=== PATIENT | male | born 1995 | race Caucasian/White ===

== ENCOUNTER 2017-07-14 15:35 | Emergency (ER) | payer BC, OTHER ==
[2017-07-14 15:41] VITALS: RESP 16
--- NOTE | 2017-07-14 16:07 | EDPHY ---
H & P Stated Complaint: R FLANK PAIN AND VISIBLE HEMATURIA Time Seen by Provider: 07/14/17 16:04 HPI/ROS: HPI: This is a 21-year-old male who presents with Chief Complaint: Right flank pain Location: Right flank Quality: Sharp pain Duration: Starting today at 1 o'clock Signs and Symptoms:+ hematuria, no nausea, no vomiting, no burning with urination, no testicular pain, no radiation of pain into groin, no diarrhea, no penile discharge, no fever Timing: Sudden Severity: Moderate to severe Context: Patient reports that he noticed some clots of blood in his urine over the last 2-3 days but denies any burning with urination or hesitancy. And then today around 1 o'clock, approximately 3 hours ago he had sudden onset of right flank pain, nonradiating in nature, that he describes as sharp and severe. Denies any nausea and vomiting. Went to urgent care and sent to the ER for further evaluation. No prior history of kidney stones. No history of abdominal surgery. Eating and drinking normally. Denies any trauma or regular NSAID use. Modifying Factors: No [id number] medications tried Comment: ROS: Constitutional: No fever, no chills, no weight loss Eyes: No blurred vision Respiratory: No shortness of breath, no cough Cardiovascular: No chest pain Gastrointestinal: No nausea, no vomiting no diarrhea Genitourinary: No dysuria Extremities: No myalgias Neurologic: No weakness, no numbness Skin: No rashes Hematologic: No bruising, no bleeding MEDICAL/SURGICAL/SOCIAL HISTORY: Right leg fracture. Generally healthy. Does not take any regular medications. 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 Originally from [place], [place]. CONSTITUTIONAL: nontoxic well-appearing young adult male, cooperative and pleasant, awake and alert, no obvious distress HEENT: Atraumatic and normocephalic, PERRL, EOMI. Tympanic membranes clear. Oropharynx clear, no exudate and moist pink mucosa. Airway patent. No lymphadenopathy. No meningismus. Cardiovascular: Normal S1/S2, regular rate, regular rhythm, without murmur rub or gallop. PULMONARY/CHEST: Symmetrical and nontender. Clear to auscultation bilaterally. Good air movement. No accessory muscle usage. ABDOMEN: Soft, nondistended, nontender, no rebound, no guarding, no peritoneal signs, no masses or organomegaly. No CVAT. Bowel sounds heard all 4 quadrants. EXTREMITIES: 2/2 pulses, no deformities, no clubbing, no cyanosis or edema. NEUROLOGICAL: no focal neuro deficits. GCS 15. SKIN: Warm and dry, no erythema. no rash. Good capillary refill. Source: Patient Exam Limitations: No limitations - Personal History Current Tetanus/Diphtheria Vaccine: Yes - Medical/Surgical History Hx Asthma: No Hx Chronic Respiratory Disease: No Hx Diabetes: No Hx Cardiac Disease: No Hx Renal Disease: No Hx Cirrhosis: No Hx Alcoholism: No Hx HIV/AIDS: No Hx Splenectomy or Spleen Trauma: No Other PMH: R LEG FX - Social History Smoking Status: Never smoked Constitutional: Initial Vital Signs Temperature (C) 37 C 07/14/17 15:38 Heart Rate 60 07/14/17 15:38 Respiratory Rate 16 07/14/17 15:38 Blood Pressure 146/90 H 07/14/17 15:38 O2 Sat (%) 97 07/14/17 15:38 O2 Delivery Mode Room Air Allergies/Adverse Reactions: No Known Allergies Allergy (Unverified 07/14/17 15:38) Home Medications: Medication Instructions Recorded NK [No Known Home Meds] 07/14/17 Medical Decision Making - Diagnostics Imaging Results: Imaging Impressions Abdomen/Pelvis CT 07/14/17 16:10 Impression: 1. Nonobstructing 10- x 3-mm calculus in the right renal pelvis. 2. No hydroureteronephrosis or perinephric edema. 3. Normal bowel and appendix. Findings discussed with Emergency Department physician health education assistant, Nancy Ramos PA-C, on July 14, 2017 at 1651. Attention: This CT examination is specifically designed to evaluate patients who are clinically suspected of having acute obstructive uropathy. This examination does not use radiographic contrast, and as such, provides only a limited evaluation of the abdomen, pelvis, and retroperitoneum. If there is further clinical suspicion for pathological conditions other than obstructive uropathy, a complete CT evaluation of the abdomen and pelvis utilizing intravenous, oral, and rectal contrast should be considered. ED Course/Re-evaluation: Urinalysis, labs, IV fluids, IV medications, CT abdomen and pelvis scan without contrast to evaluate for ureteral stones with or without hydronephrosis Given 1 L normal saline, IV Toradol, IV Zofran Urinalysis shows judy hematuria and patient no longer having pain. Suspect patient has passed a kidney stone already. UA shows RBCs, 2+ blood, trace ketones. 1455: Called by Radiology and notified CT scan shows nonobstructing calculus in the right renal pelvis 10 x 3 mm; no dilatation. No hydronephrosis. Reassessed patient and currently no pain and tolerating oral fluids. Labs are consistent with passing a recent stone. Patient will need to follow up with Urology outpatient as he has a rather large stone in his renal pelvis. He may benefit from outpatient lithotripsy. Differential Diagnosis: Flank pain including but not limited to musculoskeletal causes, kidney stone, pyelonephritis, shingles, and intra-abdominal causes such as diverticulitis and appendicitis. - Data Points Laboratory Results: Laboratory Results 07/14/17 16:31 07/14/17 16:31 07/14/17 07/14/17 07/14/17 16:31 16:31 16:00 WBC 14.17 10^3/uL H 10^3/uL (3.80-9.50) RBC 5.71 10^6/uL 10^6/uL (4.40-6.38) Hgb 17.8 g/dL H g/dL (13.7-17.5) Hct 50.4 % % (40.0-51.0) MCV 88.3 fL fL (81.5-99.8) MCH 31.2 pg pg (27.9-34.1) MCHC 35.3 g/dL g/dL (32.4-36.7) RDW 12.7 % % (11.5-15.2) Plt Count 260 10^3/uL 10^3/uL (150-400) MPV 8.6 fL L fL (8.7-11.7) Neut % (Auto) 85.0 % H % (39.3-74.2) Lymph % (Auto) 9.5 % L % (15.0-45.0) [place] % (Auto) 4.3 % L % (4.5-13.0) Eos % (Auto) 0.2 % L % (0.6-7.6) Baso % (Auto) 0.4 % % (0.3-1.7) Nucleat RBC Rel Count 0.0 % % (0.0-0.2) Absolute Neuts (auto) 12.05 10^3/uL H 10^3/uL (1.70-6.50) Absolute Lymphs (auto) 1.35 10^3/uL 10^3/uL (1.00-3.00) Absolute Monos (auto) 0.61 10^3/uL 10^3/uL (0.30-0.80) Absolute Eos (auto) 0.03 10^3/uL 10^3/uL (0.03-0.40) Absolute Basos (auto) 0.05 10^3/uL 10^3/uL (0.02-0.10) Absolute Nucleated RBC 0.00 10^3/uL 10^3/uL (0-0.01) Immature Gran % 0.6 % % (0.0-1.1) Immature Gran # 0.08 10^3/uL 10^3/uL (0.00-0.10) Sodium 140 mEq/L mEq/L (134-144) Potassium 4.1 mEq/L mEq/L (3.5-5.2) Chloride 101 mEq/L mEq/L (97-110) Carbon Dioxide 22 mEq/l mEq/l (22-31) Anion Gap 17 mEq/L H mEq/L (8-16) BUN 16 mg/dL mg/dL (7-23) Creatinine 0.9 mg/dL mg/dL (0.7-1.3) Estimated GFR > 60 Glucose 99 mg/dL mg/dL (70-100) Calcium 10.2 mg/dL mg/dL (8.5-10.4) Urine Color RED Urine Appearance MODERATELY TURBID Urine pH 6.0 (5.0-7.5) Ur Specific [place] 1.013 (1.002-1.030) Urine Protein 2+ H (NEGATIVE) Urine Ketones TRACE H (NEGATIVE) Urine Blood 2+ H (NEGATIVE) Urine Nitrate NEGATIVE (NEGATIVE) Urine Bilirubin NEGATIVE (NEGATIVE) Urine Urobilinogen NEGATIVE EU EU (0.2-1.0) Ur Leukocyte Esterase NEGATIVE (NEGATIVE) Urine RBC 50-182 /hpf H /hpf (0-3) Urine WBC 5-10 /hpf H /hpf (0-3) Ur Epithelial Cells NONE SEEN /lpf /lpf (NONE-1+) Urine Bacteria 1+ /hpf H /hpf (NONE SEEN) Urine Mucus 4+ /lpf H /lpf (NONE-1+) Urine Yeast PRESENT /hpf /hpf (NONE SEEN) Ur Culture Indicated? INDICATED H (NI) Urine Glucose NEGATIVE (NEGATIVE) Medications Given: Discontinued Medications Sodium Chloride (Ns) 1,000 mls @ 0 mls/hr IV ONCE ONE; Wide Open PRN Reason: Protocol Stop: 07/14/17 16:10 Last Admin: 07/14/17 16:37 Dose: 1,000 mls Ketorolac Tromethamine (Toradol) 30 mg IVP EDNOW ONE Stop: 07/14/17 16:10 Last Admin: 07/14/17 16:37 Dose: 30 mg Ondansetron HCl (Zofran) 4 mg IVP EDNOW ONE Stop: 07/14/17 16:10 Last Admin: 07/14/17 16:39 Dose: 4 mg Tamsulosin HCl (Flomax) 0.4 mg PO EDNOW ONE Stop: 07/14/17 16:52 Last Admin: 07/14/17 17:08 Dose: 0.4 mg Departure - Departure Disposition: Home, Routine, Self-Care Clinical Impression: Right nephrolithiasis Condition: Good Instructions: Kidney Stones (ED), Renal Colic (ED), How to Strain Your Urine ( ED) Additional Instructions: It appears that you have passed a kidney stone prior to arrival in the emergency room. CT imaging does show a large 10 mm calculus in the right renal pelvis. Please follow-up with Urology in the next 7-10 days for your kidney stone to discuss conservative management verses more aggressive intervention like lithotripsy. Drink plenty of fluids. Referrals: Prosper Canada MD [Medical Doctor] - As per Instructions [facility],. [Clinic] - As per Instructions
[2017-07-14] MEDS ORDERED: KETOROLAC 30 MG/1 ML SDV IVP ONE (16:09)
[2017-07-14] MEDS ORDERED: ONDANSETRON 4 MG/2 ML VIAL IVP ONE (16:09)
[2017-07-14] MEDS ORDERED: NS 1,000 ML IV ONE (16:09)
[2017-07-14 16:31] LABS: COLOR RED; LEUKOCYTE ESTERASE,URINE NEGATIVE (NEGATIVE); NITRITE,URINE NEGATIVE (NEGATIVE)
[2017-07-14 16:42] LABS: BACTERIA 1+ /hpf (NONE SEEN); MUCUS 4+ /lpf (NONE-1+); RBC,URINE 50-182 /hpf (0-3); YEAST PRESENT /hpf (NONE SEEN)
[2017-07-14 16:49] LABS: % IMMATURE GRANULYOCYTES 0.6 % (0.0-1.1); ABSOLUTE IMMATURE GRANULOCYTES 0.08 10^3/uL (0.00-0.10); ADD DIFF? NO; ADD MORPH? NO; ADD SCAN? NO; ATYPICAL LYMPHOCYTE FLAG 0 (0-99); FRAGMENT RBC FLAG 0 (0-99); HEMATOCRIT 50.4 % (40.0-51.0); HEMOGLOBIN 17.8 g/dL (13.7-17.5); LEFT SHIFT FLG 0 (0-99); LIPEMIA HEMOLYSIS FLAG 90 (0-99); MEAN CELL HEMOGLOBIN 31.2 pg (27.9-34.1); MEAN CELL HEMOGLOBIN CONCENTR. 35.3 g/dL (32.4-36.7); MEAN CELL VOLUME 88.3 fL (81.5-99.8); MEAN PLATELET VOLUME 8.6 fL (8.7-11.7); PLATELET CLUMPS FLAG 0 (0-99); PLATELET COUNT 260 10^3/uL (150-400); RED BLOOD CELL COUNT 5.71 10^6/uL (4.40-6.38); RED CELL DISTRIBUTION WIDTH 12.7 % (11.5-15.2)
[2017-07-14] MEDS ORDERED: TAMSULOSIN HCL 0.4 MG CAP PO ONE (16:51)
[2017-07-14 17:03] LABS: ANION GAP 17 mEq/L (8-16); CALCIUM 10.2 mg/dL (8.5-10.4); CARBON DIOXIDE 22 mEq/l (22-31); CHLORIDE 101 mEq/L (97-110); CREATININE 0.9 mg/dL (0.7-1.3); GLOMERULAR FILTRATION RATE > 60; GLUCOSE 99 mg/dL (70-100); POTASSIUM 4.1 mEq/L (3.5-5.2); SODIUM 140 mEq/L (134-144)
[2017-07-14 17:58] VITALS: BP 123/63; PULSE 51; TEMP 98.1; O2SAT 95
== END 2017-07-14 17:57 | disposition home or self-care (01) ==
DX: N20.0 Calculus of kidney (principal); E86.9 Volume depletion, unspecified
CPT/HCPCS: 96374; J1885; J2405

== ENCOUNTER → 2017-07-16 | Outpatient (CLI) | payer BC | LOC: FIMAGING 14:16 | PROVIDERS: ATTEND Specialist | DX: N20.0 Calculus of kidney (principal) ==

== ENCOUNTER 2017-07-24 14:41 | Observation (INO) | payer BC ==
[2017-07-24] MEDS ORDERED: HYDROmorphONE/DILAUDID 1 MG/ML INJ IVP ONE (14:58)
[2017-07-24] MEDS ORDERED: ONDANSETRON 4 MG/2 ML VIAL IVP ONE (14:58)
[2017-07-24] MEDS ORDERED: NS 1,000 ML IV ONE (15:05)
[2017-07-24] MEDS ORDERED: LIDOCAINE 1% 150 MG in NS 100 ML IV ONE (15:05)
[2017-07-24] MEDS ORDERED: KETOROLAC 15 MG/1 ML SDV IVP ONE (15:05)
--- NOTE | 2017-07-24 15:05 | EDPHY ---
H & P Stated Complaint: Had lithotripsy this am. Increased pain in right flank - Personal History Current Tetanus/Diphtheria Vaccine: Yes Current Tetanus Diphtheria and Acellular Pertussis (TDAP): Yes - Medical/Surgical History Hx Asthma: No Hx Chronic Respiratory Disease: No Hx Diabetes: No Hx Cardiac Disease: No Hx Renal Disease: No Hx Cirrhosis: No Hx Alcoholism: No Hx HIV/AIDS: No Hx Splenectomy or Spleen Trauma: No Other PMH: R LEG FX, kidney stones - Social History Smoking Status: Never smoked Time Seen by Provider: 07/24/17 14:58 HPI/ROS: CHIEF COMPLAINT: flank pain HISTORY OF PRESENT ILLNESS: 21-year-old male arrives via private vehicle with father. Patient was treated with lithotripsy this morning for a known 12 mm x 5 mm right UPJ stone. He was seen at [facility] complaining of quite a bit of pain was sent to the emergency department for further evaluation. Positive nausea. No vomiting. No fever or chills. REVIEW OF SYSTEMS: A ten point review of systems was performed and is negative with the exception of the items mentioned in the HPI PAST MEDICAL & SURGICAL HISTORY: Lithotripsy earlier today for a 12 mm x 5 mm UPJ stone SOCIAL HISTORY:nonsmoker PHYSICAL EXAM (Prior to examination, patient consented to physical exam, hands were washed and my usual and customary physical exam procedures followed) 1) GENERAL: Well-developed, well-nourished, alert and oriented. Appears quite uncomfortable, having difficulty sitting still . 2) HEAD: Normocephalic, atraumatic 3) HEENT: Pupils equal, round, reactive to light bilaterally. Sclera anicteric. Oropharynx: Dry mucous membranes 4) NECK: Full range of motion, no meningeal signs. 5) LUNGS: Clear auscultation bilaterally, no wheezes, no rhonchi, no retractions. 6) HEART: Regular rate and rhythm, no murmur, no heave, no gallop. 7) ABDOMEN: No guarding, no rebound, no focal tenderness, negative McBurney's, negative Antunez's, negative Rovsing's, negative peritoneal sign, 8) MUSCULOSKELETAL: Moving all extremities, no focal areas of tenderness, no obvious trauma. No peripheral edema or discoloration. 9) BACK: No CVA tenderness, no midline vertebral tenderness, no fluctuance, no step-off, no obvious trauma, no visual or palpable abnormality. 10) SKIN: No rash, no petechiae. 11) : Normal male external genitalia bilateral testicles nontender, no high- riding testicle, cremasteric reflex present symmetrical bilaterally DIFFERENTIAL DIAGNOSIS: in no particular include but limited to pyelonephritis , nephrolithiasis, ureterolithiasis (Madiha Pisano) Constitutional: Initial Vital Signs Temperature (C) 36.8 C 07/24/17 14:59 Heart Rate 99 07/24/17 14:59 Respiratory Rate 22 H 07/24/17 14:59 Blood Pressure 167/123 H 07/24/17 14:59 O2 Sat (%) 98 07/24/17 14:59 O2 Delivery Mode Nasal Cannula O2 (L/minute) 2 Allergies/Adverse Reactions: No Known Allergies Allergy (Verified 07/24/17 16:37) Home Medications: Medication Instructions Recorded NK [No Known Home Meds] 07/14/17 Medical Decision Making ED Course/Re-evaluation: 3:05 p.m.: Old medical records reviewed, patient has in quite a bit of discomfort, will administer analgesia and consult with [facility]. Discussed case with Dr. Chana Mckeon in the ER 3:13 p.m.: Phone consultation with Urology PA Hayde Maharaj who recommends admission to hospital service and either she or Dr. Manolo Ramos will consult for Urology. 3:28 p.m.: Phone consultation with hospitalist Dr. Alva who will admit patient primarily. 3:58 pm: Re-evaluation, feeling improvement pain, he has been unable to provide a urine sample as of yet. Urinalysis will need to be followed by the inpatient services (Madiha Pisano) Other Provider: The patient was evaluated and managed by the Physician Client Services Specialist. I discussed the patient's presentation and course with the physician studio assistant and agree with the evaluation. My co-signature indicates that I have reviewed this chart and I agree with the findings and plan of care as documented. I am the secondary supervising physician. (Chana Mckeon) - Data Points Laboratory Results: Laboratory Results 07/24/17 15:10 07/24/17 15:10 Medications Given: Discontinued Medications Hydromorphone HCl (Dilaudid) 1 mg IVP EDNOW ONE Stop: 07/24/17 14:59 Last Admin: 07/24/17 15:05 Dose: 1 mg Hydromorphone HCl (Dilaudid) 0.2 - 0.4 mg IVP Q2HRS PRN PRN Reason: Pain, Severe Unable to Take PO Stop: 08/03/17 17:03 Last Admin: 07/24/17 21:22 Dose: 0.4 mg Sodium Chloride (Ns) 1,000 mls @ 0 mls/hr IV ONCE ONE; Wide Open PRN Reason: Protocol Stop: 07/24/17 15:06 Last Admin: 07/24/17 15:06 Dose: 1,000 mls Lidocaine HCl 150 mg/ Sodium (Chloride) 115 mls @ 600 mls/hr IV EDNOW ONE Stop: 07/24/17 15:16 Last Admin: 07/24/17 15:19 Dose: 115 mls Sodium Chloride (Ns) 1,000 mls @ 100 mls/hr IV CONT JACOB Stop: 01/20/18 17:14 Last Admin: 07/25/17 03:25 Dose: 1,000 mls Influenza Virus Vaccine Quadrival (Fluarix Quad [id number]) 0.5 ml IM .ONCE ONE Stop: 07/24/17 17:29 Last Admin: 07/24/17 17:55 Dose: 0.5 ml Ketorolac Tromethamine (Toradol) 15 mg IVP EDNOW ONE Stop: 07/24/17 15:06 Last Admin: 07/24/17 15:07 Dose: 15 mg Ketorolac Tromethamine (Toradol) 30 mg IVP Q6 PRN PRN Reason: Pain, Inflammatory Stop: 07/29/17 17:03 Last Admin: 07/25/17 09:28 Dose: 30 mg Lorazepam (Ativan Injection) 1 mg IVP EDNOW ONE Stop: 07/24/17 15:07 Last Admin: 07/24/17 16:33 Dose: Not Given Lorazepam (Ativan) 0.5 mg PO Q4 PRN PRN Reason: Anxiety, Able to Take PO Stop: 01/20/18 17:03 Last Admin: 07/24/17 19:52 Dose: 0.5 mg Ondansetron HCl (Zofran) 4 mg IVP EDNOW ONE Stop: 07/24/17 14:59 Last Admin: 07/24/17 15:05 Dose: 4 mg Oxycodone HCl (Oxycodone Ir) 5 - 10 mg PO Q4 PRN PRN Reason: Pain, Severe Able to Take PO Stop: 08/03/17 17:03 Last Admin: 07/25/17 03:25 Dose: 10 mg Departure - Departure Disposition: [facility] Clinical Impression: Nephrolithiasis, History of lithotripsy Condition: Good
[2017-07-24] MEDS ORDERED: LORazepam 2 MG/ML INJ IVP ONE (15:06)
[2017-07-24 15:17] LABS: % IMMATURE GRANULYOCYTES 0.5 % (0.0-1.1); ABSOLUTE IMMATURE GRANULOCYTES 0.05 10^3/uL (0.00-0.10); ADD DIFF? NO; ADD MORPH? NO; ADD SCAN? NO; ATYPICAL LYMPHOCYTE FLAG 0 (0-99); FRAGMENT RBC FLAG 0 (0-99); HEMOGLOBIN 15.6 g/dL (13.7-17.5); LEFT SHIFT FLG 0 (0-99); LIPEMIA HEMOLYSIS FLAG 90 (0-99); MEAN CELL HEMOGLOBIN 31.2 pg (27.9-34.1); MEAN CELL HEMOGLOBIN CONCENTR. 35.5 g/dL (32.4-36.7); MEAN PLATELET VOLUME 8.9 fL (8.7-11.7); PLATELET CLUMPS FLAG 0 (0-99); PLATELET COUNT 233 10^3/uL (150-400); RED CELL DISTRIBUTION WIDTH 12.4 % (11.5-15.2)
[2017-07-24 15:43] LABS: ANION GAP 13 mEq/L (8-16); CALCIUM 9.9 mg/dL (8.5-10.4); CARBON DIOXIDE 20 mEq/l (22-31); CHLORIDE 104 mEq/L (97-110); GLOMERULAR FILTRATION RATE > 60; GLUCOSE 122 mg/dL (70-100); SODIUM 137 mEq/L (134-144)
[2017-07-24] MEDS ORDERED: ONDANSETRON 4 MG/2 ML VIAL IVP PRN (17:04)
[2017-07-24] MEDS ORDERED: PROMETHAZINE HCL 25 MG/ML INJ IVP PRN (17:04)
[2017-07-24] MEDS ORDERED: ACETAMINOPHEN 325 MG TAB PO PRN (17:04)
[2017-07-24] MEDS ORDERED: LORazepam 0.5 MG TAB PO PRN (17:04)
[2017-07-24] MEDS ORDERED: FLU VACC QS 2017-18 (3YR+)/PF 0.5 ML SYR (FLUARIX QUAD) IM ONE (17:28)
--- NOTE | 2017-07-24 17:51 | GHP ---
[f rep st] HISTORY AND PHYSICAL DATE OF ADMISSION: 07/24/2017 CHIEF COMPLAINT: Flank pain. HISTORY OF PRESENT ILLNESS: The patient is a 21-year-old male, who was recently diagnosed with a kid tae stone. He had an outpatient lithotripsy this morning with Dr. Amaro at [facility] in [facility]. It was a 12 x 5 mm right UPJ stone. The procedure was at 9 a.m., and he was discharged from [facility] at noon. Approximately 1:30 in the afternoon, after arriving home, his pain was excruciating, 10/10, severe ri ght flank pain so they called [facility] for a followup appointment. He arrived to the urology [facility] and was in such extreme pain, that I sent him right to the emergency room. In the ER, he arriv ed and required multiple drugs in order to get comfortable, including Toradol, IV Dilaudid, and IV At [place]. He is now much more comfortable but is being admitted for observation and pain control overnig ht. He is also having some hematuria. PAST MEDICAL HISTORY: Negative. MEDICATIONS: None. ALLERGIES: No known drug allergies. SOCIAL HISTORY: No smoking. He drinks alcohol once a week. He is a student at living in a house with some roommates. He is originally from [place]. His dad is at bedside and has traveled to [place] to support his son through this process, and his dad is currently staying at a local hotel. REVIEW OF SYSTEMS: A complete review of systems obtained. Review of systems is negative regarding c onstitutional, HEENT, GI, pulmonary, cardiovascular, , hematology, skin, musculoskeletal, endocrine , psych except for positives as in HPI. FAMILY HISTORY: His mom also has kidney stones. PHYSICAL EXAMINATION: GENERAL: Well-developed, well-nourished male in no acute distress. VITAL SIG NS: Temperature is 36.8, pulse 76, blood pressure 170/103, saturating 98% on 2 L. HEENT: Eye exami [place]: Normal conjunctivae. Pupils equal and react to light. ENT: Normal ears and nose. Hearing intact. Normal teeth. Oropharynx moist. NECK: Trachea midline. No thyromegaly. CHEST: Normal effort. LUNGS: Clear to auscultation bilaterally. CARDIOVASCULAR: Regular rhythm. No murmur. No lower extremity edema. ABDOMEN: Soft, nontender. No hepatosplenomegaly. SKIN: Warm, dry, intact . No rash. MUSCULOSKELETAL: No cyanosis or clubbing. Strength 5/5 upper and lower extremities. N EUROLOGIC: Cranial nerves intact. Normal sensation to light touch. PSYCHIATRIC: Alert and oriente d x3. Normal affect. Normal judgment. Normal memory. LABORATORY DATA: White count 10.77, hematocrit 44, platelets 233. Sodium 137, potassium 4.0, chlori de 104, bicarb 20, BUN 12, creatinine 1.0, glucose 122. Renal ultrasound shows mild hydronephrosis. I personally discussed this case with Hayde Maharaj, provider with [facility]. They are recomm ending overnight admission for observation and pain control, but if everything is doing better, he ma y discharge in the morning. ASSESSMENT AND PLAN: 1. Severe right flank pain after a lithotripsy. He is better after treatment in the emergency room. Ultrasound shows only mild hydronephrosis. Will continue supportive care. Continue IV Dilaudid an d IV Toradol as needed. 2. Hypertension. I suspect this is due to his pain. We will follow closely. 3. Obesity. Body mass index is 31. CODE STATUS: Full. ADMISSION STATUS: 1. Will admit to observation. Anticipate discharge home tomorrow if he continues to improve. 2. DVT prophylaxis. He is moderate risk due to his obesity. Will place him on subcu Lovenox. /[id number]/MODL
[2017-07-24] MEDS: oxyCODONE IR 5 MG TAB PO PRN ×3 (17:54→23:36)
[2017-07-24 17:57] LABS: COLOR PALE YELLOW; LEUKOCYTE ESTERASE,URINE NEGATIVE (NEGATIVE); NITRITE,URINE NEGATIVE (NEGATIVE)
[2017-07-24 18:07] LABS: BACTERIA 1+ /hpf (NONE SEEN); MUCUS TRACE /lpf (NONE-1+); RBC,URINE 50-182 /hpf (0-3)
[2017-07-24] MEDS: HYDROmorphONE/DILAUDID 1 MG/ML INJ IVP PRN ×2 (19:33→21:22)
[2017-07-24] MEDS: NS 1,000 ML IV SCH (19:33)
[2017-07-24] MEDS: KETOROLAC 30 MG/1 ML SDV IVP PRN (21:22)
[2017-07-25] MEDS: oxyCODONE IR 5 MG TAB PO PRN (03:25)
[2017-07-25] MEDS: KETOROLAC 30 MG/1 ML SDV IVP PRN ×2 (03:25→09:28)
[2017-07-25] MEDS: NS 1,000 ML IV SCH (03:25)
[2017-07-25 05:00] LABS: % IMMATURE GRANULYOCYTES 0.4 % (0.0-1.1); ABSOLUTE IMMATURE GRANULOCYTES 0.06 10^3/uL (0.00-0.10); ADD DIFF? NO; ADD MORPH? NO; ADD SCAN? NO; ATYPICAL LYMPHOCYTE FLAG 10 (0-99); FRAGMENT RBC FLAG 0 (0-99); HEMATOCRIT 40.3 % (40.0-51.0); LEFT SHIFT FLG 0 (0-99); LIPEMIA HEMOLYSIS FLAG 90 (0-99); MEAN CELL HEMOGLOBIN 30.8 pg (27.9-34.1); MEAN CELL HEMOGLOBIN CONCENTR. 34.7 g/dL (32.4-36.7); MEAN CELL VOLUME 88.6 fL (81.5-99.8); MEAN PLATELET VOLUME 8.7 fL (8.7-11.7); PLATELET CLUMPS FLAG 20 (0-99); PLATELET COUNT 213 10^3/uL (150-400); RED BLOOD CELL COUNT 4.55 10^6/uL (4.40-6.38); RED CELL DISTRIBUTION WIDTH 12.2 % (11.5-15.2)
[2017-07-25 05:18] LABS: ANION GAP 11 mEq/L (8-16); CALCIUM 9.2 mg/dL (8.5-10.4); CARBON DIOXIDE 22 mEq/l (22-31); CHLORIDE 104 mEq/L (97-110); CREATININE 1.3 mg/dL (0.7-1.3); GLOMERULAR FILTRATION RATE > 60; GLUCOSE 106 mg/dL (70-100); POTASSIUM 3.6 mEq/L (3.5-5.2); SODIUM 137 mEq/L (134-144)
[2017-07-25 07:57] VITALS: BP 119/50; PULSE 81; RESP 16; TEMP 98.1; O2SAT 94
[2017-07-25] MEDS ORDERED: ENOXAPARIN 40 MG/0.4 ML SYR SC SCH (09:00)
--- NOTE | 2017-07-25 09:00 | SOAPPROG ---
SOAP Progress Note Assessment/Plan: Assessment: History of lithotripsy Acute SP ESWL 2016 and post op pain and admitted for pain control--pain resolved, voiding well Hydronephrosis determined by ultrasound Acute noted on sonogram of right kidney, ureteral jet noted and total obstruction not appreciated Nephrolithiasis Acute sp ESWL Ureteral colic Acute resolved at 9AM visit Plan: DC home since pt has not pain, voiding well. Pain meds available at home 07/25/17 09:13 Subjective: feeling well, no pain, voiding well Objective: Vital Signs Temp Pulse Resp BP Pulse Ox 36.7 C 81 16 119/50 L 94 07/25/17 07:57 07/25/17 07:57 07/25/17 07:57 07/25/17 07:57 07/25/17 07:57 Laboratory Results 07/25/17 04:40 07/25/17 04:40 07/24/17 07/25/17 07/26/17 05:59 05:59 05:59 Intake Total 2200 Output Total 1650 Balance 550 Physical Exam - Physical Exam General Appearance: alert Neck: supple Respiratory: No respiratory distress Cardiac/Chest: regular rate, rhythm Male Genitalia: other (bladder nontender) Back: No CVA tenderness Neuro/Psych: alert, oriented x 3, other (smiling, no pain) ICD10 Worksheet Patient Problems: Problems Problem Status Onset History of lithotripsy Acute Hydronephrosis determined by ultrasound Acute Nephrolithiasis Acute Ureteral colic Acute - ICD10 Problem Qualifiers (1) Ureteral colic (2) Hydronephrosis determined by ultrasound
--- NOTE | 2017-07-25 09:49 | GDS ---
[f rep st] DISCHARGE SUMMARY ADMISSION DIAGNOSIS: Ureteral colic, status post extracorporeal shockwave lithotripsy. DISCHARGE DIAGNOSIS: Ureteral colic, status post extracorporeal shockwave lithotripsy. PROCEDURES DURING HOSPITALIZATION: Ultrasound of the kidneys, and IV hydration and pain control. HISTORY: This gentleman was admitted acutely because of right ureteral colic status post lithotripsy , and he has been hydrated overnight and, at the present time, he has no pain or discomfort, and is v oiding well. He had an ultrasound that showed mild hydronephrosis. No stones identified on the ultr asound, and he had a ureteral jet on the right side suggesting that there was not a complete obstruct ion of the kidney. Also, it appeared that he had some either debris, blood or stone in his bladder o n the ultrasound, which would be expected with the procedure. At the present time, he will be discha rged home. He has pain medications at home. Will follow up with Dr. Canada as an outpatient. /[id number]/MODL
== END 2017-07-25 10:32 | disposition home or self-care (01) ==
LOC: F3N 17:27
PROVIDERS: ADMIT Internal Medicine; ATTEND Internal Medicine
DX: N13.2 Hydronephrosis with renal and ureteral calculous obstruction (principal); G89.18 Other acute postprocedural pain; Z23 Encounter for immunization; E66.9 Obesity, unspecified; Z68.31 Body mass index [BMI] 31.0-31.9, adult
CPT/HCPCS: 76770; 90471; 96365; 96375; 99285; G0378; G0008; J1170; J1885; J2060; J2405

== ENCOUNTER 2017-07-28 02:07 | Emergency (ER) | payer BC ==
[2017-07-28 02:14] VITALS: TEMP 98.6
[2017-07-28] MEDS ORDERED: NS 1,000 ML IV ONE (02:32)
--- NOTE | 2017-07-28 03:04 | EDPHY ---
H & P Stated Complaint: R FLANK PAIN S/P LITHOTRIPSY Time Seen by Provider: 07/28/17 02:23 HPI/ROS: Chief Complaint: Right back pain HPI: 21-year-old male who status post lithotripsy for a left ureteral stone 4 days ago. Patient states that following his lithotripsy procedure he had worsening pain and was admitted to this hospital that night. Three days ago he was feeling improved and discharged home. He had an ultrasound at that time which showed some stones in his bladder. Patient has been taking Norton as prescribed. This morning the pain got significantly worse despite taking his Norton. No nausea or vomiting. No fevers or chills. Pain right now is about a 7/10. He has been taking 2 Norton every 6 hours as prescribed. No fevers or chills. No nausea or vomiting. No pain with urination. ROS: 10 point Review of Systems is negative except as noted in the HPI. PMH: Kidney stones Social History: No smoking, occasional alcohol, no recreational drug use Family History: non-contributory Physical Exam: Gen: Awake, Alert, No Distress HEENT: Nose: no rhinorrhea Eyes: PERRLA, EOMI Mouth: Moist mucosa Neck: Supple, no JVD Chest: nontender, lungs clear to auscultation Heart: S1, S2 normal, no murmur Abd: Soft, non-tender, no guarding Back: Moderate right CVA tenderness to percussion, no midline tenderness Ext: no edema, non-tender Skin: no rash Neuro: CN II-XII intact, Sensation grossly intact, Strength 5/5 in bilateral upper and lower extremities - Personal History Current Tetanus/Diphtheria Vaccine: Yes Current Tetanus Diphtheria and Acellular Pertussis (TDAP): Yes - Medical/Surgical History Hx Asthma: No Hx Chronic Respiratory Disease: No Hx Diabetes: No Hx Cardiac Disease: No Hx Renal Disease: No Hx Cirrhosis: No Hx Alcoholism: No Hx HIV/AIDS: No Hx Splenectomy or Spleen Trauma: No Other PMH: R LEG FX, KIDNEY STONES - Social History Smoking Status: Never smoked Constitutional: Initial Vital Signs Temperature (C) 37.0 C 07/28/17 02:12 Heart Rate 70 07/28/17 02:12 Respiratory Rate 18 07/28/17 02:12 Blood Pressure 158/75 H 07/28/17 02:12 O2 Sat (%) 97 07/28/17 02:12 O2 Delivery Mode Room Air Allergies/Adverse Reactions: No Known Allergies Allergy (Verified 07/28/17 02:14) Home Medications: Medication Instructions Recorded Hydrocodone/Acetaminophen [Norton 1 - 2 tab PO Q4H PRN 07/28/17 5/325 (*)] Tamsulosin HCl [Flomax 0.4 MG (*)] 0.4 mg PO DAILY 07/28/17 Medical Decision Making ED Course/Re-evaluation: Patient is improved. CBC is negative. I have discussed with Dr. Calderon, urology. He would like a KUB ordered. The patient come follow up with Dr. Canada in the office later today. He is afebrile. There are no signs of infection at this time. Pain is controlled. Will discharge with a Percocet prepack. - Data Points Laboratory Results: Laboratory Results 07/28/17 03:39 07/28/17 03:39 07/28/17 07/28/17 03:39 03:39 WBC 11.21 10^3/uL H 10^3/uL (3.80-9.50) RBC 4.75 10^6/uL 10^6/uL (4.40-6.38) Hgb 14.6 g/dL g/dL (13.7-17.5) Hct 40.9 % % (40.0-51.0) MCV 86.1 fL fL (81.5-99.8) MCH 30.7 pg pg (27.9-34.1) MCHC 35.7 g/dL g/dL (32.4-36.7) RDW 11.9 % % (11.5-15.2) Plt Count 224 10^3/uL 10^3/uL (150-400) MPV 8.5 fL L fL (8.7-11.7) Neut % (Auto) 73.9 % % (39.3-74.2) Lymph % (Auto) 14.7 % L % (15.0-45.0) Barton % (Auto) 9.2 % % (4.5-13.0) Eos % (Auto) 1.4 % % (0.6-7.6) Baso % (Auto) 0.4 % % (0.3-1.7) Nucleat RBC Rel Count 0.0 % % (0.0-0.2) Absolute Neuts (auto) 8.27 10^3/uL H 10^3/uL (1.70-6.50) Absolute Lymphs (auto) 1.65 10^3/uL 10^3/uL (1.00-3.00) Absolute Monos (auto) 1.03 10^3/uL H 10^3/uL (0.30-0.80) Absolute Eos (auto) 0.16 10^3/uL 10^3/uL (0.03-0.40) Absolute Basos (auto) 0.05 10^3/uL 10^3/uL (0.02-0.10) Absolute Nucleated RBC 0.00 10^3/uL 10^3/uL (0-0.01) Immature Gran % 0.4 % % (0.0-1.1) Immature Gran # 0.05 10^3/uL 10^3/uL (0.00-0.10) Sodium 140 mEq/L mEq/L (134-144) Potassium 3.8 mEq/L mEq/L (3.5-5.2) Chloride 104 mEq/L mEq/L (97-110) Carbon Dioxide 24 mEq/l mEq/l (22-31) Anion Gap 12 mEq/L mEq/L (8-16) BUN 12 mg/dL mg/dL (7-23) Creatinine 1.0 mg/dL mg/dL (0.7-1.3) Estimated GFR > 60 Glucose 111 mg/dL H mg/dL (70-100) Calcium 9.7 mg/dL mg/dL (8.5-10.4) Medications Given: Discontinued Medications Hydromorphone HCl (Dilaudid) 0.5 mg IVP EDNOW ONE Stop: 07/28/17 04:06 Last Admin: 07/28/17 04:08 Dose: 0.5 mg Sodium Chloride (Ns) 1,000 mls @ 0 mls/hr IV ONCE ONE; Wide Open PRN Reason: Protocol Stop: 07/28/17 02:33 Last Admin: 07/28/17 03:40 Dose: 1,000 mls Morphine Sulfate (Morphine) 4 mg IVP ONCE ONE Stop: 07/28/17 02:33 Last Admin: 07/28/17 03:40 Dose: 4 mg Departure - Departure Disposition: Home, Routine, Self-Care Clinical Impression: Ureteral colic Condition: Good Instructions: Renal Colic (ED) Additional Instructions: Follow up with Dr. Canada in 1-2 days, call for next available appointment. Return to the emergency depart for increasing pain, fevers, chills, nausea, vomiting, or any other concerns. Referrals: Prosper Canada MD [Medical Doctor] - As per Instructions
[2017-07-28 03:49] LABS: % IMMATURE GRANULYOCYTES 0.4 % (0.0-1.1); ABSOLUTE IMMATURE GRANULOCYTES 0.05 10^3/uL (0.00-0.10); ADD DIFF? NO; ADD MORPH? NO; ADD SCAN? NO; ATYPICAL LYMPHOCYTE FLAG 10 (0-99); FRAGMENT RBC FLAG 0 (0-99); HEMATOCRIT 40.9 % (40.0-51.0); HEMOGLOBIN 14.6 g/dL (13.7-17.5); LEFT SHIFT FLG 0 (0-99); LIPEMIA HEMOLYSIS FLAG 90 (0-99); MEAN CELL HEMOGLOBIN 30.7 pg (27.9-34.1); MEAN CELL HEMOGLOBIN CONCENTR. 35.7 g/dL (32.4-36.7); MEAN CELL VOLUME 86.1 fL (81.5-99.8); MEAN PLATELET VOLUME 8.5 fL (8.7-11.7); PLATELET CLUMPS FLAG 0 (0-99); PLATELET COUNT 224 10^3/uL (150-400); RED BLOOD CELL COUNT 4.75 10^6/uL (4.40-6.38); RED CELL DISTRIBUTION WIDTH 11.9 % (11.5-15.2)
[2017-07-28] MEDS ORDERED: HYDROmorphONE/DILAUDID 1 MG/ML INJ IVP ONE (04:05)
[2017-07-28 04:07] LABS: ANION GAP 12 mEq/L (8-16); CALCIUM 9.7 mg/dL (8.5-10.4); CARBON DIOXIDE 24 mEq/l (22-31); CHLORIDE 104 mEq/L (97-110); GLOMERULAR FILTRATION RATE > 60; GLUCOSE 111 mg/dL (70-100); POTASSIUM 3.8 mEq/L (3.5-5.2); SODIUM 140 mEq/L (134-144)
[2017-07-28 05:48] LABS: COLOR YELLOW; LEUKOCYTE ESTERASE,URINE NEGATIVE (NEGATIVE); NITRITE,URINE NEGATIVE (NEGATIVE)
[2017-07-28] MEDS ORDERED: OXYCODONE/APAP 5/325MG PREPACK#4 BTL TAKEHOME ONE (05:49)
[2017-07-28 05:50] LABS: MUCUS TRACE /lpf (NONE-1+)
[2017-07-28 06:10] VITALS: BP 136/83; PULSE 57; RESP 16; O2SAT 95
== END 2017-07-28 06:10 | disposition home or self-care (01) ==
PROC: 3E0337Z Introduction of Electrolytic and Water Balance Substance into Peripheral Vein, Percutaneous Approach (ICD-10-PCS; principal; 2017-07-28)
DX: N23 Unspecified renal colic (principal); E86.9 Volume depletion, unspecified
CPT/HCPCS: 96374; J1170

== ENCOUNTER → 2017-08-25 | Outpatient (CLI) | payer BC | LOC: FLAB 08:06 | PROVIDERS: ATTEND Specialist | DX: N20.0 Calculus of kidney (principal); Z96.0 Presence of urogenital implants ==